=== PATIENT | female | born 1940 | race Caucasian/White ===

== ENCOUNTER 2019-06-26 14:29 | Outpatient (CLI) | payer MEDICARE, MEDICAID, SELFPAY ==
--- NOTE | ~2019-06-26 | XR_ITS ---
EXAMINATION: XR shoulder LT min 2V DATE: 06/26/2019 15:08 INDICATION: Left shoulder pain. TECHNIQUE: 6 views of left shoulder were obtained. COMPARISON: Left shoulder radiographs 12/22/2017 FINDINGS: There is a left shoulder hemiarthroplasty in near-anatomic alignment. No fracture. No perip rosthetic lucency to suggest loosening or infection. There is mild osteoarthritis of the acromioclavi cular joint. There is a surgical clip in left neck. IMPRESSION: 1. Left shoulder hemiarthroplasty in near-anatomic alignment. 2. Mild osteoarthritis of left acromioclavicular joint. Reviewed, dictated and finalized at location A. [facility] [employer]
== END 2019-06-26 14:30 | disposition home or self-care (01) ==
LOC: CHSIMG 14:34
PROVIDERS: PCP Internal Medicine; Visit Provider Internal Medicine
DX: M25.512 Pain in left shoulder (principal)
CPT/HCPCS: 73030

== ENCOUNTER 2020-07-09 06:32 | Outpatient (NON) | payer MEDICARE, SELFPAY ==
[2020-07-09 06:45] LABS: Basophils Absolute Auto 0.04 K/mm3 (0.00-0.10); Basophils Percent Auto 0.5 % (0.0-1.0); Eosinophils Absolute Auto 0.53 K/mm3 (0.02-0.50); Hematocrit 37.5 % (35.0-42.0); Hemoglobin 12.2 g/dL (11.7-13.8); Immature Granulocyte Absolute 0.03 K/mm3 (0.00-0.00); Immature Granulocyte Percent A 0.4 % (0.0-0.0); Lymphocytes Absolute Auto 2.66 K/mm3 (1.10-4.50); Lymphocytes Percent Auto 35.1 % (18.0-42.0); Mean Corpuscular HGB Conc 32.5 g/dL (32.0-36.0); Mean Corpuscular Hemoglobin 29.5 pg (27.0-31.0); Mean Corpuscular Volume 90.6 fL (78.0-102.0); Mean Platelet Volume 10.5 fl (9.2-11.8); Monocytes Absolute Auto 0.44 K/mm3 (0.10-0.90); Monocytes Percent Auto 5.8 % (2.0-11.0); Neutrophils Absolute Auto 3.9 K/mm3 (1.7-7.2); Neutrophils Percent Auto 51.2 % (50.0-70.0); Platelet Count Result 194 K/mm3 (150-420); Red Blood Count 4.14 M/mm3 (4.20-5.40); Red Cell Distribution Width 14.7 % (11.6-14.4); White Blood Count 7.6 K/mm3 (4.8-10.8)
[2020-07-09 07:08] LABS: Alanine Aminotransferase 29 U/L (14-59); Albumin Level 3.4 g/dL (3.4-5.0); Alkaline Phosphatase 81 U/L (46-116); Anion Gap 6 mmol/L (8-16); Aspartate Amino Transferase 11 U/L (15-37); Bilirubin,Total 0.9 mg/dL (0.00-1.00); Blood Urea Nitrogen 24 mg/dL (7-18); Carbon Dioxide 33 mmol/L (21-32); Chloride 103 mmol/L (98-108); Cholesterol 106 mg/dL (0-200); Estimated Glomerular Filt Rate 43; Glucose 146 mg/dL (70-99); HDL Direct 37 mg/dL (40-60); LDL Cholesterol Calculated 43 mg/dL (<130); Osmolality Calculated 301 mOsm/kg (285-295); Potassium 4.4 mmol/L (3.5-5.1); Sodium 142 mmol/L (136-145); Thyroid Stimulating Hormone 5.29 uIU/mL (0.36-3.74); Total Protein 6.6 g/dL (6.4-8.2); Triglycerides 129 mg/dL (0-150)
== END 2020-07-09 06:33 ==
PROVIDERS: PCP Internal Medicine; Visit Provider Internal Medicine
DX: E11.9 Type 2 diabetes mellitus without complications (principal); E78.5 Hyperlipidemia, unspecified; I10 Essential (primary) hypertension; I73.9 Peripheral vascular disease, unspecified
CPT/HCPCS: 36415; 80053; 80061; 84443; 85025

== ENCOUNTER 2020-08-06 06:20 | Outpatient (NON) | payer MEDICARE, SELFPAY ==
[2020-08-06 07:07] LABS: Basophils Absolute Auto 0.05 K/mm3 (0.00-0.10); Basophils Percent Auto 0.7 % (0.0-1.0); Eosinophils Absolute Auto 0.46 K/mm3 (0.02-0.50); Eosinophils Percent Auto 6.2 % (1.0-6.0); Hemoglobin 12.8 g/dL (11.7-13.8); Immature Granulocyte Absolute 0.02 K/mm3 (0.00-0.00); Immature Granulocyte Percent A 0.3 % (0.0-0.0); Lymphocytes Absolute Auto 2.74 K/mm3 (1.10-4.50); Lymphocytes Percent Auto 36.8 % (18.0-42.0); Mean Corpuscular Hemoglobin 29.2 pg (27.0-31.0); Mean Corpuscular Volume 91.1 fL (78.0-102.0); Monocytes Absolute Auto 0.47 K/mm3 (0.10-0.90); Monocytes Percent Auto 6.3 % (2.0-11.0); Neutrophils Absolute Auto 3.7 K/mm3 (1.7-7.2); Neutrophils Percent Auto 49.7 % (50.0-70.0); Platelet Count Result 197 K/mm3 (150-420); Red Blood Count 4.39 M/mm3 (4.20-5.40); Red Cell Distribution Width 14.3 % (11.6-14.4); White Blood Count 7.5 K/mm3 (4.8-10.8)
[2020-08-06 07:09] LABS: Hemoglobin A1C 6.6 % (<5.7)
[2020-08-06 07:14] LABS: Alanine Aminotransferase 34 U/L (14-59); Albumin Level 3.5 g/dL (3.4-5.0); Alkaline Phosphatase 91 U/L (46-116); Anion Gap 11 mmol/L (8-16); Aspartate Amino Transferase 14 U/L (15-37); Blood Urea Nitrogen 27 mg/dL (7-18); Calcium 9.7 mg/dL (8.5-10.1); Carbon Dioxide 27 mmol/L (21-32); Chloride 102 mmol/L (98-108); Estimated Glomerular Filt Rate 43; Glucose 119 mg/dL (70-99); Osmolality Calculated 296 mOsm/kg (285-295); Potassium 4.8 mmol/L (3.5-5.1); Sodium 140 mmol/L (136-145); Total Protein 6.9 g/dL (6.4-8.2)
== END 2020-08-06 06:21 ==
LOC: CHSLAB 06:21
PROVIDERS: Visit Provider Internal Medicine
DX: I25.10 Atherosclerotic heart disease of native coronary artery without angina pectoris (principal); E11.9 Type 2 diabetes mellitus without complications; I10 Essential (primary) hypertension; I73.9 Peripheral vascular disease, unspecified
CPT/HCPCS: 36415; 80053; 83036; 85025

== ENCOUNTER 2020-09-12 11:21 | Outpatient (NON) | payer MEDICARE, SELFPAY ==
[2020-09-12 11:43] LABS: Add Urine Microscopic? YES; Appearance Urine Cloudy (Clear); Bilirubin Urine Negative (Negative); Blood Urine 2+ (Negative); Color Urine Yellow (Yellow); Glucose Urine UA Negative (Negative); Ketones Urine Negative (Negative); Leukocyte Esterase Ur 3+ LEU/UL (Negative); Nitrate Urine Negative (Negative); Protein Urine Negative (Negative); Specific Grav Ur 1.015 (1.010-1.020); Urobilinogen Urine 0.2 mg/dL (0.2-1.0); pH Urine 6.5 (5.0-8.0)
[2020-09-12 12:19] LABS: Squamous Epithelial Cell Urine Occasional /hpf (Few); WBC Urine >75 /hpf (0-3)
[2020-09-12 12:20] LABS: Bacteria Urine 3+ /hpf
== END 2020-09-12 11:22 | disposition home or self-care (01) ==
LOC: CHSLAB 11:23
PROVIDERS: PCP Internal Medicine; Visit Provider Internal Medicine
DX: N39.0 Urinary tract infection, site not specified (principal)
CPT/HCPCS: 81001; 87077; 87086; 87088; 87186

== ENCOUNTER 2020-09-29 13:12 | Outpatient (NON) | payer MEDICARE, SELFPAY ==
[2020-09-29 13:20] LABS: Add Urine Microscopic? YES; Appearance Urine Cloudy (Clear); Bilirubin Urine Negative (Negative); Blood Urine Trace-Intact (Negative); Color Urine Yellow (Yellow); Glucose Urine UA Negative (Negative); Ketones Urine Negative (Negative); Leukocyte Esterase Ur 2+ (Negative); Nitrate Urine Negative (Negative); Protein Urine Trace (Negative); Specific Grav Ur 1.025 (1.010-1.020)
[2020-09-29 13:21] LABS: Bacteria Urine 1+ /hpf; RBC Urine 0-2 /hpf (0-2); Squamous Epithelial Cell Urine Rare /hpf (Few); WBC Urine >75 /hpf (0-3)
== END 2020-09-29 13:13 | disposition home or self-care (01) ==
LOC: CHSLAB 13:13
PROVIDERS: PCP Internal Medicine; Visit Provider Internal Medicine
DX: N39.0 Urinary tract infection, site not specified (principal)
CPT/HCPCS: 81001; 87086; 87088

== ENCOUNTER 2020-10-24 06:45 | Outpatient (NON) | payer MEDICARE, SELFPAY ==
[2020-10-24 07:09] LABS: Basophils Absolute Auto 0.06 K/mm3 (0.00-0.10); Basophils Percent Auto 0.7 % (0.0-1.0); Eosinophils Absolute Auto 0.28 K/mm3 (0.02-0.50); Eosinophils Percent Auto 3.4 % (1.0-6.0); Hematocrit 40.7 % (35.0-42.0); Hemoglobin 13.2 g/dL (11.7-13.8); Immature Granulocyte Absolute 0.03 K/mm3 (0.00-0.00); Immature Granulocyte Percent A 0.4 % (0.0-0.0); Lymphocytes Absolute Auto 2.44 K/mm3 (1.10-4.50); Lymphocytes Percent Auto 29.6 % (18.0-42.0); Mean Corpuscular HGB Conc 32.4 g/dL (32.0-36.0); Mean Corpuscular Hemoglobin 29.4 pg (27.0-31.0); Mean Corpuscular Volume 90.6 fL (78.0-102.0); Mean Platelet Volume 10.8 fl (9.2-11.8); Monocytes Absolute Auto 0.44 K/mm3 (0.10-0.90); Monocytes Percent Auto 5.3 % (2.0-11.0); Neutrophils Percent Auto 60.6 % (50.0-70.0); Platelet Count Result 227 K/mm3 (150-420); Red Blood Count 4.49 M/mm3 (4.20-5.40); Red Cell Distribution Width 13.6 % (11.6-14.4); White Blood Count 8.3 K/mm3 (4.8-10.8)
[2020-10-24 07:47] LABS: Alanine Aminotransferase 28 U/L (14-59); Albumin Level 3.6 g/dL (3.4-5.0); Alkaline Phosphatase 95 U/L (46-116); Anion Gap 9 mmol/L (8-16); Aspartate Amino Transferase 11 U/L (15-37); Blood Urea Nitrogen 16 mg/dL (7-18); Calcium 9.1 mg/dL (8.5-10.1); Carbon Dioxide 32 mmol/L (21-32); Chloride 101 mmol/L (98-108); Estimated Glomerular Filt Rate 56; Glucose 147 mg/dL (70-99); Osmolality Calculated 298 mOsm/kg (285-295); Potassium 4.3 mmol/L (3.5-5.1); Sodium 142 mmol/L (136-145); Total Protein 6.9 g/dL (6.4-8.2)
[2020-10-24 07:52] LABS: Hemoglobin A1C 7.8 % (<5.7)
[2020-10-24 08:10] LABS: Bilirubin,Total 1.2 mg/dL (0.00-1.00)
== END 2020-10-24 06:46 | disposition home or self-care (01) ==
LOC: CHSLAB 06:52
PROVIDERS: Visit Provider Internal Medicine
DX: E11.9 Type 2 diabetes mellitus without complications (principal)
CPT/HCPCS: 36415; 80053; 83036; 85025

== ENCOUNTER 2020-11-07 07:31 | Outpatient (NON) | payer MEDICARE, SELFPAY ==
[2020-11-07 08:35] LABS: Basophils Absolute Auto 0.06 K/mm3 (0.00-0.10); Basophils Percent Auto 0.9 % (0.0-1.0); Eosinophils Absolute Auto 0.28 K/mm3 (0.02-0.50); Eosinophils Percent Auto 4.1 % (1.0-6.0); Hematocrit 40.1 % (35.0-42.0); Immature Granulocyte Absolute 0.01 K/mm3 (0.00-0.00); Immature Granulocyte Percent A 0.1 % (0.0-0.0); Mean Corpuscular HGB Conc 32.4 g/dL (32.0-36.0); Mean Corpuscular Hemoglobin 29.2 pg (27.0-31.0); Mean Corpuscular Volume 90.1 fL (78.0-102.0); Mean Platelet Volume 11.3 fl (9.2-11.8); Monocytes Absolute Auto 0.44 K/mm3 (0.10-0.90); Monocytes Percent Auto 6.4 % (2.0-11.0); Neutrophils Absolute Auto 3.7 K/mm3 (1.7-7.2); Neutrophils Percent Auto 53.5 % (50.0-70.0); Platelet Count Result 219 K/mm3 (150-420); Red Blood Count 4.45 M/mm3 (4.20-5.40); Red Cell Distribution Width 13.3 % (11.6-14.4); White Blood Count 6.9 K/mm3 (4.8-10.8)
[2020-11-07 08:48] LABS: Alanine Aminotransferase 29 U/L (14-59); Albumin Level 3.4 g/dL (3.4-5.0); Alkaline Phosphatase 92 U/L (46-116); Anion Gap 12 mmol/L (8-16); Aspartate Amino Transferase 15 U/L (15-37); Bilirubin,Total 0.9 mg/dL (0.00-1.00); Blood Urea Nitrogen 21 mg/dL (7-18); Calcium 8.9 mg/dL (8.5-10.1); Carbon Dioxide 28 mmol/L (21-32); Chloride 102 mmol/L (98-108); Estimated Glomerular Filt Rate 54; Glucose 138 mg/dL (70-99); Osmolality Calculated 299 mOsm/kg (285-295); Potassium 4.3 mmol/L (3.5-5.1); Sodium 142 mmol/L (136-145); Total Protein 6.6 g/dL (6.4-8.2)
== END 2020-11-07 07:32 | disposition home or self-care (01) ==
LOC: CHSLAB 07:34
PROVIDERS: Visit Provider Internal Medicine
DX: I25.10 Atherosclerotic heart disease of native coronary artery without angina pectoris (principal); E11.9 Type 2 diabetes mellitus without complications; I10 Essential (primary) hypertension; I73.9 Peripheral vascular disease, unspecified
CPT/HCPCS: 36415; 80053; 83036; 85025

== ENCOUNTER 2021-01-02 06:34 | Outpatient (NON) | payer MEDICARE, SELFPAY ==
[2021-01-02 06:53] LABS: Basophils Absolute Auto 0.06 K/mm3 (0.00-0.10); Basophils Percent Auto 0.9 % (0.0-1.0); Eosinophils Absolute Auto 0.27 K/mm3 (0.02-0.50); Eosinophils Percent Auto 3.9 % (1.0-6.0); Hemoglobin 12.7 g/dL (11.7-13.8); Immature Granulocyte Absolute 0.02 K/mm3 (0.00-0.00); Immature Granulocyte Percent A 0.3 % (0.0-0.0); Lymphocytes Absolute Auto 2.52 K/mm3 (1.10-4.50); Lymphocytes Percent Auto 36.6 % (18.0-42.0); Mean Corpuscular HGB Conc 32.6 g/dL (32.0-36.0); Mean Corpuscular Volume 92.2 fL (78.0-102.0); Mean Platelet Volume 10.8 fl (9.2-11.8); Monocytes Absolute Auto 0.41 K/mm3 (0.10-0.90); Neutrophils Absolute Auto 3.6 K/mm3 (1.7-7.2); Neutrophils Percent Auto 52.3 % (50.0-70.0); Platelet Count Result 190 K/mm3 (150-420); Red Blood Count 4.23 M/mm3 (4.20-5.40); Red Cell Distribution Width 13.6 % (11.6-14.4); White Blood Count 6.9 K/mm3 (4.8-10.8)
[2021-01-02 07:14] LABS: Alanine Aminotransferase 32 U/L (14-59); Albumin Level 3.4 g/dL (3.4-5.0); Alkaline Phosphatase 85 U/L (46-116); Anion Gap 11 mmol/L (8-16); Aspartate Amino Transferase 15 U/L (15-37); Bilirubin,Total 0.8 mg/dL (0.00-1.00); Blood Urea Nitrogen 19 mg/dL (7-18); Calcium 9.1 mg/dL (8.5-10.1); Carbon Dioxide 29 mmol/L (21-32); Chloride 104 mmol/L (98-108); Cholesterol 119 mg/dL (0-200); Estimated Glomerular Filt Rate 50; Glucose 140 mg/dL (70-99); HDL Direct 39 mg/dL (40-60); LDL Cholesterol Calculated 53 mg/dL (<130); Osmolality Calculated 302 mOsm/kg (285-295); Potassium 4.2 mmol/L (3.5-5.1); Sodium 144 mmol/L (136-145); Total Protein 6.7 g/dL (6.4-8.2); Triglycerides 135 mg/dL (0-150)
== END 2021-01-02 06:35 | disposition home or self-care (01) ==
LOC: CHSLAB 06:36
PROVIDERS: Visit Provider Internal Medicine
DX: E11.9 Type 2 diabetes mellitus without complications (principal); E78.5 Hyperlipidemia, unspecified; I10 Essential (primary) hypertension; M81.0 Age-related osteoporosis without current pathological fracture
CPT/HCPCS: 36415; 80053; 80061; 85025

== ENCOUNTER 2021-04-24 06:49 | Outpatient (NON) | payer MEDICARE, SELFPAY ==
[2021-04-24 07:41] LABS: Basophils Absolute Auto 0.06 K/mm3 (0.00-0.10); Basophils Percent Auto 0.9 % (0.0-1.0); Eosinophils Absolute Auto 0.28 K/mm3 (0.02-0.50); Eosinophils Percent Auto 4.1 % (1.0-6.0); Hematocrit 38.9 % (35.0-42.0); Hemoglobin 12.6 g/dL (11.7-13.8); Immature Granulocyte Absolute 0.02 K/mm3 (0.00-0.00); Immature Granulocyte Percent A 0.3 % (0.0-0.0); Lymphocytes Absolute Auto 2.59 K/mm3 (1.10-4.50); Lymphocytes Percent Auto 37.8 % (18.0-42.0); Mean Corpuscular HGB Conc 32.4 g/dL (32.0-36.0); Mean Corpuscular Volume 92.6 fL (78.0-102.0); Monocytes Absolute Auto 0.43 K/mm3 (0.10-0.90); Monocytes Percent Auto 6.3 % (2.0-11.0); Neutrophils Absolute Auto 3.5 K/mm3 (1.7-7.2); Neutrophils Percent Auto 50.6 % (50.0-70.0); Platelet Count Result 185 K/mm3 (150-420); Red Cell Distribution Width 13.9 % (11.6-14.4); White Blood Count 6.9 K/mm3 (4.8-10.8)
[2021-04-24 08:06] LABS: Hemoglobin A1C 7.3 % (<5.7)
[2021-04-24 08:10] LABS: Alanine Aminotransferase 35 U/L (14-59); Albumin Level 3.3 g/dL (3.4-5.0); Alkaline Phosphatase 84 U/L (46-116); Anion Gap 10 mmol/L (8-16); Aspartate Amino Transferase 16 U/L (15-37); Bilirubin,Total 0.7 mg/dL (0.00-1.00); Blood Urea Nitrogen 21 mg/dL (7-18); Calcium 8.8 mg/dL (8.5-10.1); Carbon Dioxide 28 mmol/L (21-32); Chloride 105 mmol/L (98-108); Estimated Glomerular Filt Rate 52; Glucose 132 mg/dL (70-99); Osmolality Calculated 301 mOsm/kg (285-295); Potassium 4.1 mmol/L (3.5-5.1); Sodium 143 mmol/L (136-145); Total Protein 6.4 g/dL (6.4-8.2)
== END 2021-04-24 06:50 | disposition home or self-care (01) ==
LOC: CHSLAB 06:50
PROVIDERS: Visit Provider Internal Medicine
DX: E11.9 Type 2 diabetes mellitus without complications (principal); I10 Essential (primary) hypertension; I73.9 Peripheral vascular disease, unspecified
CPT/HCPCS: 36415; 80053; 83036; 85025

== ENCOUNTER 2021-07-03 06:52 | Outpatient (NON) | payer OTHER, SELFPAY ==
[2021-07-03 07:38] LABS: Basophils Absolute Auto 0.05 K/mm3 (0.00-0.10); Basophils Percent Auto 0.7 % (0.0-1.0); Eosinophils Absolute Auto 0.31 K/mm3 (0.02-0.50); Eosinophils Percent Auto 4.5 % (1.0-6.0); Hematocrit 40.4 % (35.0-42.0); Hemoglobin 13.1 g/dL (11.7-13.8); Immature Granulocyte Absolute 0.03 K/mm3 (0.00-0.00); Immature Granulocyte Percent A 0.4 % (0.0-0.0); Lymphocytes Absolute Auto 2.42 K/mm3 (1.10-4.50); Lymphocytes Percent Auto 35.2 % (18.0-42.0); Mean Corpuscular HGB Conc 32.4 g/dL (32.0-36.0); Mean Corpuscular Hemoglobin 30.3 pg (27.0-31.0); Mean Corpuscular Volume 93.5 fL (78.0-102.0); Monocytes Absolute Auto 0.45 K/mm3 (0.10-0.90); Monocytes Percent Auto 6.5 % (2.0-11.0); Neutrophils Absolute Auto 3.6 K/mm3 (1.7-7.2); Neutrophils Percent Auto 52.7 % (50.0-70.0); Platelet Count Result 187 K/mm3 (150-420); Red Blood Count 4.32 M/mm3 (4.20-5.40); Red Cell Distribution Width 13.9 % (11.6-14.4); White Blood Count 6.9 K/mm3 (4.8-10.8)
[2021-07-03 08:04] LABS: Alanine Aminotransferase 44 U/L (14-59); Albumin Level 3.5 g/dL (3.4-5.0); Alkaline Phosphatase 99 U/L (46-116); Anion Gap 11 mmol/L (8-16); Aspartate Amino Transferase 19 U/L (15-37); Bilirubin,Total 0.6 mg/dL (0.00-1.00); Blood Urea Nitrogen 19 mg/dL (7-18); Calcium 9.1 mg/dL (8.5-10.1); Carbon Dioxide 29 mmol/L (21-32); Chloride 101 mmol/L (98-108); Cholesterol 111 mg/dL (0-200); Estimated Glomerular Filt Rate 50; Glucose 196 mg/dL (70-99); HDL Direct 36 mg/dL (40-60); LDL Cholesterol Calculated 44 mg/dL (<130); Osmolality Calculated 299 mOsm/kg (285-295); Potassium 4.6 mmol/L (3.5-5.1); Sodium 141 mmol/L (136-145); Thyroid Stimulating Hormone 3.87 uIU/mL (0.36-3.74); Total Protein 6.7 g/dL (6.4-8.2); Triglycerides 153 mg/dL (0-150)
== END 2021-07-03 06:53 | disposition home or self-care (01) ==
LOC: CHSLAB 06:56
PROVIDERS: Visit Provider Internal Medicine
DX: E11.9 Type 2 diabetes mellitus without complications (principal); E78.5 Hyperlipidemia, unspecified; I10 Essential (primary) hypertension; I73.9 Peripheral vascular disease, unspecified
CPT/HCPCS: 36415; 80053; 80061; 84443; 85025

== ENCOUNTER 2021-08-04 10:52 | Outpatient (CLI) | payer OTHER, SELFPAY ==
--- NOTE | ~2021-08-04 | XR_ITS ---
EXAMINATION: XR tibia fibula RT 2V, XR foot RT min 3V DATE: 08/04/2021 11:33 INDICATION: Sores at the right foot and lower leg with generalized pain and aching. TECHNIQUE: 1. Anteroposterior, mortise, additional oblique and lateral view of the affected ankle were obtained. 2. Anteroposterior and lateral views of the right tibia and fibula were obtained. COMPARISON: None. FINDINGS: Partially visualized right total knee arthroplasty. No periprosthetic lucency about the tibial compon ent to suggest loosening. Alignment of the right foot and ankle is normal. No fracture. 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 A dditional mild osteoarthritis at the tibiotalar and multiple additional joints in the mid and forefoo t. No ankle joint effusion. Diffuse soft tissue swelling throughout the right lower leg, foot and ank le. There are multiple small scattered calcifications in the subcutaneous tissues likely combination of phleboliths and heterotopic ossification. IMPRESSION: 1. No acute osseous abnormality at the right foot are lower leg. 2. Mild to moderate polyarticular osteoarthritis at the right foot and ankle. Reviewed, dictated and finalized at location A. IMPRESSION: 1. No acute osseous abnormality at the right foot are lower leg. 2. Mild to moderate polyarticular osteoarthritis at the right foot and ankle.
== END 2021-08-04 10:53 | disposition home or self-care (01) ==
LOC: CHSIMG 10:54
PROVIDERS: PCP Internal Medicine; Visit Provider Nurse Practitioner Family
DX: L98.9 Disorder of the skin and subcutaneous tissue, unspecified (principal); E11.9 Type 2 diabetes mellitus without complications
CPT/HCPCS: 73590; 73630

== ENCOUNTER 2021-08-19 14:09 | Outpatient (CLI) | payer OTHER, SELFPAY ==
--- NOTE | ~2021-08-19 | US_ITS ---
EXAMINATION: US venous doppler LE DATE: 08/19/2021 15:06 INDICATION: Localized swelling at the right lower limb. TECHNIQUE: Grayscale ultrasound images without and with compression and Doppler ultrasound images of the right lower extremity veins were obtained. COMPARISON: None. FINDINGS: The visualized portions of right common femoral vein, profunda (deep) femoral vein, femoral vein, pop liteal vein, peroneal trunk, posterior tibial veins, peroneal veins, gastrocnemius vein and greater s aphenous vein outflow are patent. Right standing venous mapping: reflux seconds duration; vein size. Greater saphenous origin: 0 seconds; 4.9 mm. Greater saphenous mid thigh:------ 0 seconds; 2.4 mm. Greater saphenous below knee:--- 0 seconds; 2.6 mm. Greater saphenous distal calf:------ 0 seconds; 2.0 mm. Lesser saphenous proximally:------ 0 seconds; 1.0 mm. Lesser saphenous distally: 0 seconds; 1.1 mm. IMPRESSION: 1. No deep venous thrombosis in the right lower limb. 2. No reflux along the right greater or lesser saphenous veins. Reviewed, dictated and finalized at location A.
--- NOTE | ~2021-08-19 | US_ITS ---
EXAMINATION: US arterial ankle brachial ind DATE: 08/19/2021 15:06 INDICATION: Localized edema/swelling in the lower limbs. TECHNIQUE: Segmental pressures and plethysmographic and Doppler waveforms of the brachial and lower e xtremity arteries were obtained. COMPARISON: None. FINDINGS: Right and left brachial artery pressures of 110 mm Hg and 106 mm Hg, respectively, are concordant (no rmal difference <= 30 mmHg). The right ankle-brachial index (VICKIE) is 0.77 (normal >= 0.9-1.0). Arterial Doppler waveforms are biph asic with delayed upstrokes in the right dorsalis pedis artery. Monophasic parvus and tardus waveform s with very slow flow 2-3 cm/s in the right posterior tibial artery on color Doppler. The left VICKIE is 0.91. Arterial Doppler waveforms are biphasic with brisk systolic upstroke at the lef t dorsalis pedis artery. Slow monophasic waveform with borderline delayed upstroke at the left shuttler car ior tibial artery with peak systolic velocity of 3-4 cm/s. IMPRESSION: 1. Arterial occlusive disease to the bilateral lower limbs with mildly decreased right and borderline decreased left ABIs. Reviewed, dictated and finalized at location A. IMPRESSION: 1. Arterial occlusive disease to the bilateral lower limbs with mildly decrease d right and borderline decreased left ABIs.
== END 2021-08-19 14:10 | disposition home or self-care (01) ==
LOC: CHSIMG 14:11
PROVIDERS: PCP Internal Medicine; Visit Provider Nurse Practitioner Family
DX: R60.0 Localized edema (principal); I87.8 Other specified disorders of veins; L97.912 Non-pressure chronic ulcer of unspecified part of right lower leg with fat layer exposed; R09.89 Other specified symptoms and signs involving the circulatory and respiratory systems
CPT/HCPCS: 93922; 93971

== ENCOUNTER 2021-09-08 09:35 | Outpatient (RCR) | payer OTHER, SELFPAY | END 2021-09-17 23:59 | disposition home or self-care (01) | LOC: CHSWOUND 09:35 | PROVIDERS: PCP Internal Medicine; Visit Provider Nurse Practitioner Family | DX: E11.621 Type 2 diabetes mellitus with foot ulcer (principal); L97.512 Non-pressure chronic ulcer of other part of right foot with fat layer exposed; E11.622 Type 2 diabetes mellitus with other skin ulcer; L97.812 Non-pressure chronic ulcer of other part of right lower leg with fat layer exposed; E11.40 Type 2 diabetes mellitus with diabetic neuropathy, unspecified; E11.51 Type 2 diabetes mellitus with diabetic peripheral angiopathy without gangrene; I25.10 Atherosclerotic heart disease of native coronary artery without angina pectoris; I10 Essential (primary) hypertension; G51.0 Bell's palsy; G30.9 Alzheimer's disease, unspecified; F02.80 Dementia in other diseases classified elsewhere, unspecified severity, without behavioral disturbance, psychotic disturbance, mood disturbance, and anxiety; Z79.899 Other long term (current) drug therapy; Z79.4 Long term (current) use of insulin; Z79.84 Long term (current) use of oral hypoglycemic drugs; E78.5 Hyperlipidemia, unspecified | CPT/HCPCS: 11042; 87070; 87205; 97597; 99213; G0463 ==

== ENCOUNTER 2021-09-30 06:26 | Outpatient (NON) | payer OTHER, SELFPAY ==
[2021-09-30 07:04] LABS: Basophils Absolute Auto 0.04 K/mm3 (0.00-0.10); Basophils Percent Auto 0.5 % (0.0-1.0); Eosinophils Absolute Auto 0.24 K/mm3 (0.02-0.50); Eosinophils Percent Auto 3.2 % (1.0-6.0); Hematocrit 39.7 % (35.0-42.0); Hemoglobin 12.2 g/dL (11.7-13.8); Immature Granulocyte Absolute 0.02 K/mm3 (0.00-0.00); Immature Granulocyte Percent A 0.3 % (0.0-0.0); Lymphocytes Absolute Auto 2.73 K/mm3 (1.10-4.50); Lymphocytes Percent Auto 36.5 % (18.0-42.0); Mean Corpuscular HGB Conc 30.7 g/dL (32.0-36.0); Mean Corpuscular Hemoglobin 29.3 pg (27.0-31.0); Mean Corpuscular Volume 95.2 fL (78.0-102.0); Mean Platelet Volume 10.6 fl (9.2-11.8); Monocytes Absolute Auto 0.44 K/mm3 (0.10-0.90); Monocytes Percent Auto 5.9 % (2.0-11.0); Neutrophils Percent Auto 53.6 % (50.0-70.0); Platelet Count Result 208 K/mm3 (150-420); Red Blood Count 4.17 M/mm3 (4.20-5.40); Red Cell Distribution Width 13.7 % (11.6-14.4); White Blood Count 7.5 K/mm3 (4.8-10.8)
[2021-09-30 07:19] LABS: Alanine Aminotransferase 29 U/L (14-59); Alkaline Phosphatase 77 U/L (46-116); Anion Gap 6 mmol/L (8-16); Aspartate Amino Transferase 20 U/L (15-37); Bilirubin,Total 0.6 mg/dL (0.00-1.00); Blood Urea Nitrogen 17 mg/dL (7-18); Calcium 8.9 mg/dL (8.5-10.1); Carbon Dioxide 30 mmol/L (21-32); Chloride 104 mmol/L (98-108); Cholesterol 104 mg/dL (0-200); Estimated Glomerular Filt Rate 51; Glucose 82 mg/dL (70-99); HDL Direct 38 mg/dL (40-60); LDL Cholesterol Calculated 41 mg/dL (<130); Osmolality Calculated 290 mOsm/kg (285-295); Potassium 4.1 mmol/L (3.5-5.1); Sodium 140 mmol/L (136-145); Total Protein 6.7 g/dL (6.4-8.2); Triglycerides 127 mg/dL (0-150)
[2021-09-30 07:42] LABS: Hemoglobin A1C 6.6 % (<5.7)
== END 2021-09-30 06:27 | disposition home or self-care (01) ==
PROVIDERS: Visit Provider Internal Medicine
DX: E11.9 Type 2 diabetes mellitus without complications (principal); E78.5 Hyperlipidemia, unspecified; I10 Essential (primary) hypertension; I73.9 Peripheral vascular disease, unspecified
CPT/HCPCS: 36415; 80053; 80061; 83036; 85025

== ENCOUNTER 2021-11-26 10:21 | Outpatient (CLI) | payer OTHER, SELFPAY ==
--- NOTE | ~2021-11-26 | XR_ITS ---
EXAM: XR foot RT min 3V DATE: 11/26/2021 10:56 HISTORY: NON HEALING R GREAT TOE ULCER/DIABETES UNCONTROLLED . COMPARISON: None available. FINDINGS: Normal mineralization. No fracture or dislocation. No lytic or blastic lesion. Degenerativ e changes in the first MTP, midfoot and tibiotalar joints. No erosion or periosteal change. Soft tiss ue swelling of the foot. Scattered soft tissue calcifications, likely venous. Medial ulcer over the f irst MTP, without subjacent osseous change. IMPRESSION: No radiographic evidence of osteomyelitis. Reviewed, dictated and finalized at location K.
[2021-11-26 10:36] LABS: Basophils Absolute Auto 0.05 K/mm3 (0.00-0.10); Basophils Percent Auto 0.6 % (0.0-1.0); Eosinophils Absolute Auto 0.17 K/mm3 (0.02-0.50); Eosinophils Percent Auto 2.1 % (1.0-6.0); Hematocrit 39.9 % (35.0-42.0); Immature Granulocyte Absolute 0.02 K/mm3 (0.00-0.00); Immature Granulocyte Percent A 0.2 % (0.0-0.0); Lymphocytes Absolute Auto 2.15 K/mm3 (1.10-4.50); Lymphocytes Percent Auto 26.5 % (18.0-42.0); Mean Corpuscular HGB Conc 32.6 g/dL (32.0-36.0); Mean Corpuscular Hemoglobin 30.4 pg (27.0-31.0); Mean Corpuscular Volume 93.2 fL (78.0-102.0); Mean Platelet Volume 10.2 fl (9.2-11.8); Monocytes Absolute Auto 0.39 K/mm3 (0.10-0.90); Monocytes Percent Auto 4.8 % (2.0-11.0); Neutrophils Absolute Auto 5.3 K/mm3 (1.7-7.2); Neutrophils Percent Auto 65.8 % (50.0-70.0); Platelet Count Result 204 K/mm3 (150-420); Red Blood Count 4.28 M/mm3 (4.20-5.40); White Blood Count 8.1 K/mm3 (4.8-10.8)
[2021-11-26 10:53] LABS: Alanine Aminotransferase 29 U/L (14-59); Albumin Level 3.3 g/dL (3.4-5.0); Alkaline Phosphatase 104 U/L (46-116); Anion Gap 9 mmol/L (8-16); Aspartate Amino Transferase 17 U/L (15-37); Bilirubin,Total 0.7 mg/dL (0.00-1.00); Blood Urea Nitrogen 20 mg/dL (7-18); Calcium 9.2 mg/dL (8.5-10.1); Carbon Dioxide 28 mmol/L (21-32); Chloride 101 mmol/L (98-108); Estimated Glomerular Filt Rate 43; Glucose 245 mg/dL (70-99); Osmolality Calculated 296 mOsm/kg (285-295); Potassium 4.3 mmol/L (3.5-5.1); Sodium 138 mmol/L (136-145); Total Protein 7.1 g/dL (6.4-8.2)
== END 2021-11-26 10:22 | disposition home or self-care (01) ==
LOC: CHSIMG 10:23
PROVIDERS: PCP Internal Medicine; Visit Provider Nurse Practitioner Family
DX: L98.491 Non-pressure chronic ulcer of skin of other sites limited to breakdown of skin (principal); E11.9 Type 2 diabetes mellitus without complications
CPT/HCPCS: 36415; 73630; 80053; 85025

== ENCOUNTER 2021-12-19 05:03 | Inpatient (IN) | payer OTHER, SELFPAY ==
[2021-12-19] VITALS (39 sets, daily range): BP systolic 128–199; BP diastolic 57–104; PULSE 52–118; RESP 18–28; TEMP 35.7–36.6; O2SAT 88–97; BMI 45.8
--- NOTE | ~2021-12-19 | CT_ITS ---
EXAMINATION: CTA chest PE protocol DATE: 12/22/2021 12:39 INDICATION: Shortness of breath. TECHNIQUE: Computed tomography angiography (CTA) of the chest was performed with 100 mL Omnipaque-350 intravenous contrast timed to evaluate the pulmonary arteries. Coronal maximum intensity projection 3D-reconstructions were created by the technologist. Automated exposure control and iterative reconst ruction technique were employed. The dose-length product was 997.26 mGy-cm. COMPARISON: Chest single view 12/19/2021 FINDINGS: There are small pleural effusions. There is atelectasis bilaterally with a dependent predom inance. There is smooth septal thickening in the lungs, consistent with pulmonary edema. There are mu ltiple nodules in the lungs measuring up to 9 mm in left lower lobe. The heart size is normal. There are coronary artery calcifications. There is a moderate-sized pericardial effusion. There is mediasti nal and left supraclavicular lymphadenopathy. For example, a left supraclavicular node measures 2.9 x 1.8 cm. There are gallstones in the gallbladder, which is normal in size. There is severe thoracic s pondylosis. IMPRESSION: 1. No pulmonary embolus. 2. Pulmonary nodules measuring up to 9 mm suspicious for metastatic disease. 3. Mediastinal and left supraclavicular lymphadenopathy suspicious for metastatic disease. Ultrasound -guided core needle biopsy of a left supraclavicular lymph node is recommended. 4. Mild pulmonary edema. 5. Small pleural effusions. 6. Moderate-sized pericardial effusion. Reviewed, dictated and finalized at location A. IMPRESSION: 1. No pulmonary embolus. 2. Pulmonary nodules measuring up to 9 mm suspicious for metastatic disease. 3. Mediastinal and left supraclavicular lymphadenopathy suspicious for metastat ic disease. Ultrasound-guided core needle biopsy of a left supraclavicular lymp h node is recommended. 4. Mild pulmonary edema. 5. Small pleural effusions. 6. Moderate-sized pericardial effusion.
--- NOTE | ~2021-12-19 | XR_ITS ---
EXAMINATION: XR chest 1V portable DATE: 12/19/2021 05:51 INDICATION: Shortness of breath TECHNIQUE: frontal view of the chest was obtained. COMPARISON: Chest radiograph dated 03/15/2019 FINDINGS: Gradient of basilar predominant hazy airspace opacities in the bilateral mid and lower lung zones con sistent with small bilateral posterior layering pleural effusions with associated atelectasis and/or pneumonia. Perihilar opacities likely represent superimposed mild pulmonary edema. Cardiomegaly. Dens e mitral annular calcification. Severe right glenohumeral osteoarthritis. Left glenohumeral hemiarthr oplasty with humeral head component. Surgical clip at the left neck. IMPRESSION: 1. Likely congestive heart failure with cardiomegaly, mild perihilar edema and small bilateral pleura l effusions with associated atelectasis. Differential includes pneumonia. Reviewed, dictated and finalized at location A. IMPRESSION: 1. Likely congestive heart failure with cardiomegaly, mild perihilar edema and small bilateral pleural effusions with associated atelectasis. Differential inc ludes pneumonia.
--- NOTE | 2021-12-19 05:09 | ED.SOB ---
HPI - SOB/Dyspnea General Chief Complaint: Shortness of Breath/Dyspnea <Andrey Dumont MD - Last Filed: 12/20/21 07:03> Stated Complaint: SOB <Andrey Dumont MD - Last Filed: 12/20/21 07:03> Time Seen by Provider: 12/19/21 05:09 <Andrey Dumont MD - Last Filed: 12/20/21 07:03> Source: patient, EMS and RN notes reviewed <Andrey Dumont MD - Last Filed: 12/20/21 07:03> Mode of arrival: EMS <Andrey Dumont MD - Last Filed: 12/20/21 07:03> Limitations: no limitations <Andrey Dumont MD - Last Filed: 12/20/21 07:03> History of Present Illness MD elicited complaint: shortness of breath <Andrey Dumont MD - Last Filed: 12/20/21 07:03> Onset (ago): day(s) (2-3) <Andrey Dumont MD - Last Filed: 12/20/21 07:03> Timing: constant <Andrey Dumont MD - Last Filed: 12/20/21 07:03> Severity: moderate <Andrey Dumont MD - Last Filed: 12/20/21 07:03> Exacerbating factors: lying flat, exertion and movement <Andrey Dumont MD - Last Filed: 12/20/21 07:03> Relieving factors: oxygen <Andrey Dumont MD - Last Filed: 12/20/21 07:03> Known history of: COPD <Andrey Dumont MD - Last Filed: 12/20/21 07:03> Associated symptoms: cough and wheezing <Andrey Dumont MD - Last Filed: 12/20/21 07:03> Treatment prior to arrival: oxygen <Andrey Dumont MD - Last Filed: 12/20/21 07:03> Related Data Home oxygen amount: none <MD Ayaz Cristina Last Filed: 12/20/21 07:03> Home Medications: Home Medications Medication Instructions Recorded Confirmed Trulicity 1.5 mg subcut WEEKLY 12/19/21 12/19/21 Wellbutrin SR 150 mg PO DAILY 12/19/21 12/19/21 armodafinil 200 mg tablet 200 mg PO DAILY 12/19/21 12/19/21 aspirin 81 mg tablet 81 mg PO DAILY 12/19/21 12/19/21 atorvastatin 20 mg tablet 20 mg PO DAILY 12/19/21 12/19/21 cilostazol 100 mg tablet 100 mg PO BID 12/19/21 12/19/21 donepezil 10 mg tablet 10 mg PO 12/19/21 12/19/21 gabapentin 300 mg capsule 300 mg PO DAILY 12/19/21 12/19/21 gabapentin 600 mg tablet 900 mg PO 12/19/21 12/19/21 insulin NPH isoph U-100 human 100 10 unit subcut 12/19/21 12/19/21 unit/mL subcutaneous suspension (Novolin N NPH U-100 Insulin isophane) insulin NPH isoph U-100 human 100 30 unit subcut [facility] 12/19/21 12/19/21 unit/mL subcutaneous suspension (Novolin N NPH U-100 Insulin isophane) metformin 500 mg tablet 500 mg PO BID 12/19/21 12/19/21 silver sulfadiazine 1 % topical 1 applic topical DAILY 12/19/21 12/19/21 cream spironolactone 25 1 tablet PO DAILY 12/19/21 12/19/21 mg-hydrochlorothiazide 25 mg tablet <Andrey Dumont MD - Last Filed: 12/20/21 07:03> Allergies/Adverse Reactions: Allergies Allergy/AdvReac Type Severity Reaction Status Date / Time No Known Allergies Allergy Verified 12/19/21 05:06 <Andrey Dumont MD - Last Filed: 12/20/21 07:03> Review of Systems Review of Systems: All systems reviewed & are unremarkable except as noted in HPI and below <Andrey Dumont MD - Last Filed: 12/20/21 07:03> Constitutional: Constitutional: Denies chills and Denies fever(s) <Andrey Dumont MD - Last Filed: 12/20/21 07:03> Cardiovascular: Cardiovascular: Denies chest pain <Andrey Dumont MD - Last Filed: 12/20/21 07:03> Respiratory: Respiratory: Reports as per HPI <Andrey Dumont MD - Last Filed: 12/20/21 07:03> Gastrointestinal: Gastrointestinal: Denies nausea and Denies vomiting <Andrey Dumont MD - Last Filed: 12/20/21 07:03> Genitourinary: Genitourinary: Denies nocturia and Denies dysuria <Andrey Dumont MD - Last Filed: 12/20/21 07:03> [facility] Past Medical History Medical History: Medical History (Updated 12/19/21 @ 07:02 by Andrey Dumont MD) Anxiety and depression CVA (cerebral vascular accident) Hyperlipidemia Hypertension Morbid obesity Obstructive sleep apnea Peripheral vascular disease Type 2 diabetes mellitus <Andrey Valladares Sa
[2021-12-19] MEDS: ALBUTEROL SULFATE (*SP) INHALER 4 PUFF INHALATION (05:38)
--- NOTE | 2021-12-19 05:40 | PC.NURSE ---
PT IS TO BE PLACED ON HIGH FLOW O2.
[2021-12-19 05:57] LABS: Base Excess ABG 4.6 mmol/L (0-2); HCO3 ABG 32.5 mmol/L (23-29); Oxygen Content ABG 17.9 %vol (16.0-22.0); Oxygen Saturation ABG 92.9 % (95-97); Oxyhemoglobin 91.9 % (94-100); PCO2 ABG 63.3 mmHg (35-45); PO2 ABG 74.2 mmHg (75-85); Total Hemoglobin 13.8 g/dL (12.0-18.0); pH ABG 7.33 (7.35-7.45)
[2021-12-19 06:00] LABS: Modified Allen's Test Pass; Site Drawn RIGHT RADIAL
[2021-12-19 06:01] LABS: Device NASAL CANNULA
[2021-12-19 06:03] LABS: Basophils Absolute Auto 0.04 K/mm3 (0.00-0.10); Basophils Percent Auto 0.5 % (0.0-1.0); Eosinophils Absolute Auto 0.17 K/mm3 (0.02-0.50); Eosinophils Percent Auto 2.1 % (1.0-6.0); Hematocrit 40.4 % (35.0-42.0); Hemoglobin 12.6 g/dL (11.7-13.8); Immature Granulocyte Absolute 0.02 K/mm3 (0.00-0.00); Immature Granulocyte Percent A 0.3 % (0.0-0.0); Lymphocytes Absolute Auto 1.87 K/mm3 (1.10-4.50); Lymphocytes Percent Auto 23.6 % (18.0-42.0); Mean Corpuscular HGB Conc 31.2 g/dL (32.0-36.0); Mean Corpuscular Hemoglobin 30.4 pg (27.0-31.0); Mean Corpuscular Volume 97.3 fL (78.0-102.0); Mean Platelet Volume 10.1 fl (9.2-11.8); Monocytes Absolute Auto 0.48 K/mm3 (0.10-0.90); Monocytes Percent Auto 6.1 % (2.0-11.0); Neutrophils Absolute Auto 5.3 K/mm3 (1.7-7.2); Neutrophils Percent Auto 67.4 % (50.0-70.0); Platelet Count Result 220 K/mm3 (150-420); Red Blood Count 4.15 M/mm3 (4.20-5.40); Red Cell Distribution Width 14.9 % (11.6-14.4); White Blood Count 7.9 K/mm3 (4.8-10.8)
--- NOTE | 2021-12-19 06:16 | PC.NURSE ---
pt is repositioned on stretcher at this time. iv site established. pt reports she is breathing easier with the high flow o2. pt is awaiting results at this time. will continue to monitor.
[2021-12-19 06:17] LABS: Prothrombin Time 11.2 Seconds (9.50-12.10)
[2021-12-19 06:26] LABS: Alanine Aminotransferase 25 U/L (14-59); Albumin Level 3.5 g/dL (3.4-5.0); Alkaline Phosphatase 101 U/L (46-116); Anion Gap 5 mmol/L (8-16); Aspartate Amino Transferase 16 U/L (15-37); Bilirubin,Total 0.8 mg/dL (0.00-1.00); Blood Urea Nitrogen 19 mg/dL (7-18); Carbon Dioxide 32 mmol/L (21-32); Chloride 101 mmol/L (98-108); Estimated CRCL calculation 39 ml/min; Estimated Glomerular Filt Rate 41; Glucose 184 mg/dL (70-99); Magnesium 1.6 mg/dL (1.8-2.4); NT Pro B Type Natriuretic Pept 334 pg/mL (0-450); Osmolality Calculated 293 mOsm/kg (285-295); Potassium 4.4 mmol/L (3.5-5.1); Sodium 138 mmol/L (136-145); Total Protein 7.2 g/dL (6.4-8.2)
[2021-12-19 06:27] LABS: CRP < 0.2 mg/dL (0.0-0.9)
[2021-12-19 06:30] LABS: Lactic Acid Reflex 0.7 mmol/L (0.4-2.0)
[2021-12-19 06:38] LABS: SARS-CoV-2 RNA PCR Negative (Negative)
--- NOTE | 2021-12-19 06:39 | PC.NURSE ---
pt now repositioned onto left side with pillow under rt hip. will continue to monitor.
[2021-12-19] MEDS: methylPREDNISolone SOD SUCC 125 MG VIAL IV PUSH (07:03)
[2021-12-19] MEDS: IPRATROPIUM 0.5 MG/ALBUTEROL SULFATE 2.5 MG AMPUL.NEB 3 ML INHALATION ×3 (07:05→18:24)
[2021-12-19 07:23] LABS: HCO3 ABG 30.6 mmol/L (23-29); Oxygen Content ABG 16.9 %vol (16.0-22.0); Oxyhemoglobin 87.1 % (94-100); PCO2 ABG 60.7 mmHg (35-45); PO2 ABG 59.8 mmHg (75-85); Total Hemoglobin 13.8 g/dL (12.0-18.0); pH ABG 7.32 (7.35-7.45)
[2021-12-19 07:24] LABS: Site Drawn LEFT RADIAL
[2021-12-19 07:25] LABS: Modified Allen's Test Pass
[2021-12-19 07:26] LABS: Device HIGH FLOW THERAPY
[2021-12-19 08:30] LABS: Base Excess ABG 1.5 mmol/L (0-2); HCO3 ABG 28.5 mmol/L (23-29); Oxygen Content ABG 17.2 %vol (16.0-22.0); Oxygen Saturation ABG 90.6 % (95-97); PCO2 ABG 55.2 mmHg (35-45); PO2 ABG 66.2 mmHg (75-85); Total Hemoglobin 13.6 g/dL (12.0-18.0); pH ABG 7.33 (7.35-7.45)
[2021-12-19 08:32] LABS: Device HIGH FLOW THERAPY; Modified Allen's Test Pass; Site Drawn LEFT RADIAL
--- NOTE | 2021-12-19 09:34 | ECG_ITS ---
Measurements Intervals [place] Rate: 93 P: 18 AK: 184 QRS: 79 QRSD: 121 T: 27 QT: 367 QTc: 456 Interpretive Statements SINUS RHYTHM RIGHT BUNDLE BRANCH BLOCK LOW VOLTAGE- PRECORDIAL LEADS BASELINE ARTIFACT- I, II, III, AVR, AVL, AVF, V1-V7 ABNORMAL ECG Electronically Signed On 12-19-2021 10:56:41 CDT by Lester Mendez D.O.
[2021-12-19] MEDS: SODIUM BICARBONATE 8.4% 50 MEQ/50 ML SYRINGE IV PUSH (09:53)
[2021-12-19] MEDS: FUROSEMIDE INJ 100 MG/10 ML VIAL 80 MG IV PUSH (09:53)
--- NOTE | 2021-12-19 10:22 | PC.NURSE ---
[facility] ACCEPTED PT 0815, BED REQUESTED FROM MARY ELLEN CARCAMO NURSE. BED ASSIGNMENT OF 0830,
[2021-12-19] MEDS: cilostazoL 100 MG TABLET PO ×2 (11:17→16:55)
[2021-12-19] MEDS: ATORVASTATIN 10 MG TABLET 20 MG PO (11:17)
[2021-12-19] MEDS: hydroCHLOROthiazide 25 MG TABLET PO (11:17)
[2021-12-19] MEDS: buPROPion HCL XL (24 HR) 150 MG TABCR PO (11:18)
[2021-12-19] MEDS: SPIRONOLACTONE 25 MG TABLET PO (11:18)
[2021-12-19] MEDS: GABAPENTIN 300 MG CAPSULE PO (11:18)
[2021-12-19] MEDS: ENOXAPARIN 40 MG/0.4 ML SYRINGE SUB-Q (11:18)
[2021-12-19 11:28] LABS: Add Urine Microscopic? YES; Appearance Urine Clear (Clear); Bilirubin Urine Negative (Negative); Blood Urine 2+ (Negative); Color Urine Light Yellow (Yellow); Glucose Urine UA Negative (Negative); Ketones Urine Negative (Negative); Leukocyte Esterase Ur 1+ LEU/UL (Negative); Nitrate Urine Negative (Negative); Protein Urine Negative (Negative); Urobilinogen Urine 0.2 mg/dL (0.2-1.0)
[2021-12-19 11:33] LABS: Bacteria Urine Trace /hpf; Squamous Epithelial Cell Urine Occasional /hpf (Few)
[2021-12-19 11:57] LABS: Glucose Point of Care 210 mg/dl (65-105)
[2021-12-19] MEDS: MAGNESIUM SULF 2 GM/WATER 50ML 2 GM/50 ML BAG IVPB (13:43)
[2021-12-19] MEDS: SILVER SULFADIAZINE 1% CR 400 GM JAR (*BKC) 1 APPLIC TOPICAL (13:43)
[2021-12-19] MEDS: ASPIRIN 81 MG ENTERIC TABLET PO (13:43)
[2021-12-19] MEDS: MAGNESIUM SULF 2 GM/WATER 50ML 2 GM/50 ML BAG 50 GM (14:46)
--- NOTE | 2021-12-19 14:53 | ADMGEN ---
This patient, Stephanie Zavala, was admitted to 2nd Floor Room 206-1. Patient/family oriented to hospital policies and general routines including ID bracelet, bed and alarms, visiting hours, pain management, procedures, bathroom and other care routines, personal items, smoking policy, room service/diet, and visiting hours. Information on how to activate the Rapid Response Team has been discussed. Patient/Family are encouraged to report perceived risks to care and to ask questions if they do not understand what they are told or what they should do.
[2021-12-19 16:37] LABS: Glucose Point of Care 300 mg/dl (65-105)
--- NOTE | 2021-12-19 17:16 | PC.NURSE ---
sister in law is here to visit, reports pt has no feeling in one leg and the nh was using a lift to get her up to chair, pt is alert to person only at this time, unsure which hospital she is in or how she got here, reoriented, dinner tray set up, pt sitting up in bed, hi flow on, serrano to gravity
[2021-12-19] MEDS: methylPREDNISolone SOD SUCC 125 MG VIAL 80 MG IV PUSH (19:29)
[2021-12-19 20:51] LABS: Glucose Point of Care 268 mg/dl (65-105)
[2021-12-19] MEDS: INSULIN HUMAN NPH (*BKC) 100 UNITS/ML 10 UNITS SUB-Q (20:51)
[2021-12-19] MEDS: DONEPEZIL HCL 5 MG TABLET 10 MG PO (21:30)
[2021-12-19] MEDS: GABAPENTIN 300 MG CAPSULE 900 MG PO (21:31)
[2021-12-20] VITALS (25 sets, daily range): BP systolic 103–146; BP diastolic 53–74; PULSE 83–107; RESP 17–26; TEMP 36.1–37; O2SAT 90–96
[2021-12-20] MEDS: IPRATROPIUM 0.5 MG/ALBUTEROL SULFATE 2.5 MG AMPUL.NEB 3 ML INHALATION ×4 (00:03→18:22)
[2021-12-20 06:26] LABS: Glucose Point of Care 282 mg/dl (65-105)
[2021-12-20] MEDS: methylPREDNISolone SOD SUCC 125 MG VIAL 80 MG IV PUSH (06:31)
[2021-12-20] MEDS: INSULIN HUMAN NPH (*BKC) 100 UNITS/ML 30 UNITS SUB-Q (06:32)
[2021-12-20] MEDS: ENOXAPARIN 40 MG/0.4 ML SYRINGE SUB-Q (09:15)
[2021-12-20] MEDS: buPROPion HCL XL (24 HR) 150 MG TABCR PO (09:16)
[2021-12-20] MEDS: ASPIRIN 81 MG ENTERIC TABLET PO (09:16)
[2021-12-20] MEDS: FUROSEMIDE INJ 40 MG/4 ML VIAL IV PUSH (09:16)
[2021-12-20] MEDS: SPIRONOLACTONE 25 MG TABLET PO (09:17)
[2021-12-20] MEDS: cilostazoL 100 MG TABLET PO ×2 (09:17→17:08)
[2021-12-20] MEDS: GABAPENTIN 300 MG CAPSULE PO (09:17)
[2021-12-20] MEDS: ATORVASTATIN 10 MG TABLET 20 MG PO (09:17)
[2021-12-20] MEDS: hydroCHLOROthiazide 25 MG TABLET PO (09:17)
[2021-12-20] MEDS: SILVER SULFADIAZINE 1% CR 400 GM JAR (*BKC) 1 APPLIC TOPICAL (09:35)
--- NOTE | 2021-12-20 10:18 | PM.IMHP ---
H&P: HPI History of Present Illness Date/Time: 12/20/21 10:18 Chief Complaint: Shortness of breath Narrative: This is a 80-year-old female that presented to the emergency care with complaints of shortness of breath. Patient has a past medical history of anxiety and depression, CVA, hyperlipidemia, hypertension, morbidly obese, sleep apnea, PVD and type 2 diabetes. Patient is a poor historian all information obtained from medical records. According to ED notes patient presented with shortness of breath due to COPD exacerbation and mild congestive heart failure. Unclear when it started and what treatment she received at the retirement. Currently patient remains on high flow nasal cannula according to nursing staff attempted to titrate patient dropped below 87%. Vital signs 113/67, 97, 20, 97.7, 92% on high flow nasal cannula with a flow rate of 35 L/min and FiO2 of 70%, WBC 7.9, hemoglobin 12.6, hematocrit 40.4, platelets 220, pH 7.33 CO2 55.2 O2 66.2, sodium 138, potassium 4.4, BUN 19, creatinine 1.27, glucose 282, AST 16, total bilirubin 0.8, ALT 25, CRP less than 0.2, BNP 334, urine with blood and leukocyte Estrace COVID-negative. Patient does not appear to be in any distress, she is resting comfortably in bed. She will remain until her high flow oxygen can be titrated up. Review of Systems Review of Systems: A 14 organ system Review of Systems was performed and pertinent positives included in the HPI, otherwise remaining ROS is negative. [facility] Past Medical History Medical History (Updated 12/20/21 @ 10:30 by KENNEDY Trujillo) Anxiety and depression CVA (cerebral vascular accident) Hyperlipidemia Hypertension Morbid obesity Obstructive sleep apnea Peripheral vascular disease Type 2 diabetes mellitus Social History Social History (Updated 12/19/21 @ 05:27 by Andrey Dumont MD) Smoking status: Former smoker Tobacco type: cigarettes Second hand tobacco smoke exposure: No Alcohol intake: former Substance use: unknown Spiritual care concerns: No Meds Home Medications and Allergies Home Medications Medication Instructions Recorded Confirmed Type Trulicity 1.5 mg subcut WEEKLY 12/19/21 12/19/21 History Wellbutrin SR 150 mg PO DAILY 12/19/21 12/19/21 History armodafinil 200 mg tablet 200 mg PO DAILY 12/19/21 12/19/21 History aspirin 81 mg tablet 81 mg PO DAILY 12/19/21 12/19/21 History atorvastatin 20 mg tablet 20 mg PO DAILY 12/19/21 12/19/21 History cilostazol 100 mg tablet 100 mg PO BID 12/19/21 12/19/21 History donepezil 10 mg tablet 10 mg PO 12/19/21 12/19/21 History gabapentin 300 mg capsule 300 mg PO DAILY 12/19/21 12/19/21 History gabapentin 600 mg tablet 900 mg PO 12/19/21 12/19/21 History insulin NPH isoph U-100 human 100 10 unit subcut HS 12/19/21 12/19/21 History unit/mL subcutaneous suspension (Novolin N NPH U-100 Insulin isophane) insulin NPH isoph U-100 human 100 30 unit subcut [facility] 12/19/21 12/19/21 History unit/mL subcutaneous suspension (Novolin N NPH U-100 Insulin isophane) metformin 500 mg tablet 500 mg PO BID 12/19/21 12/19/21 History silver sulfadiazine 1 % topical 1 applic topical DAILY 12/19/21 12/19/21 History cream spironolactone 25 1 tablet PO DAILY 12/19/21 12/19/21 History mg-hydrochlorothiazide 25 mg tablet Allergies Allergy/AdvReac Type Severity Reaction Status Date / Time No Known Allergies Allergy Verified 12/19/21 05:06 Vital Signs Vital Signs - 24 hr 12/19/21 11:57 12/19/21 13:35 12/19/21 13:44 Temperature Pulse Rate 104 H 118 H 115 H Respiratory Rate 26 H 26 H Blood Pressure Pulse Oximetry 94 91 Oxygen Delivery Oxygen Flow Rate 45 45 Fraction of Inspired Oxygen 12/19/21 13:48 12/19/21 14:14 12/19/21 15:50 Temperature 97.6 F Pulse Rate 101 H 102 H Respiratory Rate 22 H Blood Pressure 137/62 Pulse Oximetry 91 91 Oxygen Delivery High Flow Therapy with Na High Flow Therapy wi
[2021-12-20 11:48] LABS: Glucose Point of Care 426 mg/dl (65-105)
[2021-12-20 17:05] LABS: Glucose Point of Care 355 mg/dl (65-105)
--- NOTE | 2021-12-20 18:20 | PC.NURSE ---
Pt had run of SVT lasting about one minute. Pt was sleeping at the time. No distress noted. Pt now back to sinus rhythm at 98bpm. [facility] notified.
[2021-12-20] MEDS: GABAPENTIN 300 MG CAPSULE 900 MG PO (21:21)
[2021-12-20] MEDS: DONEPEZIL HCL 5 MG TABLET 10 MG PO (21:22)
[2021-12-20 21:25] LABS: Glucose Point of Care 252 mg/dl (65-105)
[2021-12-20] MEDS: INSULIN HUMAN NPH (*BKC) 100 UNITS/ML 10 UNITS SUB-Q (21:27)
[2021-12-21] VITALS (24 sets, daily range): BP systolic 123–149; BP diastolic 60–74; PULSE 81–112; RESP 16–24; TEMP 36.1–37.2; O2SAT 90–98
[2021-12-21] MEDS: IPRATROPIUM 0.5 MG/ALBUTEROL SULFATE 2.5 MG AMPUL.NEB 3 ML INHALATION ×4 (00:18→18:07)
[2021-12-21] MEDS: INSULIN HUMAN NPH (*BKC) 100 UNITS/ML 30 UNITS SUB-Q (06:37)
[2021-12-21 06:41] LABS: Glucose Point of Care 198 mg/dl (65-105)
[2021-12-21] MEDS: buPROPion HCL XL (24 HR) 150 MG TABCR PO (08:28)
[2021-12-21] MEDS: ENOXAPARIN 40 MG/0.4 ML SYRINGE SUB-Q (08:28)
[2021-12-21] MEDS: hydroCHLOROthiazide 25 MG TABLET PO (08:28)
[2021-12-21] MEDS: GABAPENTIN 300 MG CAPSULE PO (08:28)
[2021-12-21] MEDS: SPIRONOLACTONE 25 MG TABLET PO (08:28)
[2021-12-21] MEDS: ASPIRIN 81 MG ENTERIC TABLET PO (08:28)
[2021-12-21] MEDS: cilostazoL 100 MG TABLET PO ×2 (08:28→17:04)
[2021-12-21] MEDS: methylPREDNISolone SOD SUCC 40 MG VIAL IV PUSH (08:29)
[2021-12-21] MEDS: ATORVASTATIN 10 MG TABLET 20 MG PO (08:29)
[2021-12-21] MEDS: SILVER SULFADIAZINE 1% CR 400 GM JAR (*BKC) 1 APPLIC TOPICAL (08:29)
[2021-12-21 12:06] LABS: Glucose Point of Care 317 mg/dl (65-105)
[2021-12-21 12:42] LABS: Hematocrit 41.5 % (35.0-42.0); Hemoglobin 13.1 g/dL (11.7-13.8); Mean Corpuscular HGB Conc 31.6 g/dL (32.0-36.0); Mean Corpuscular Hemoglobin 30.3 pg (27.0-31.0); Mean Corpuscular Volume 96.1 fL (78.0-102.0); Mean Platelet Volume 10.1 fl (9.2-11.8); Platelet Count Result 257 K/mm3 (150-420); Red Blood Count 4.32 M/mm3 (4.20-5.40); Red Cell Distribution Width 14.7 % (11.6-14.4); White Blood Count 12.4 K/mm3 (4.8-10.8)
[2021-12-21 12:56] LABS: Alanine Aminotransferase 32 U/L (14-59); Albumin Level 3.6 g/dL (3.4-5.0); Alkaline Phosphatase 94 U/L (46-116); Anion Gap 6 mmol/L (8-16); Aspartate Amino Transferase 26 U/L (15-37); Bilirubin,Total 0.6 mg/dL (0.00-1.00); Blood Urea Nitrogen 37 mg/dL (7-18); Carbon Dioxide 34 mmol/L (21-32); Chloride 97 mmol/L (98-108); Estimated CRCL calculation 38 ml/min; Estimated Glomerular Filt Rate 38; Glucose 317 mg/dL (70-99); Osmolality Calculated 304 mOsm/kg (285-295); Potassium 4.3 mmol/L (3.5-5.1); Sodium 137 mmol/L (136-145); Total Protein 7.4 g/dL (6.4-8.2)
--- NOTE | 2021-12-21 12:57 | WPDPN ---
Progress Note: A&P Assessment and Plan (1) PNA (pneumonia): Code(s): J18.9 - Pneumonia, unspecified organism Status: Acute Assessment and Plan: Chest x-ray indicates possible pneumonia Blood culture pending WBCs lactic acid, CRP are within normal limits Patient requiring high flow currently on 2 L nasal cannula Started Rocephin with Solu-Medrol duo nebulizers for treatment will discharge with cefdinir Will attempt to titrate oxygen down Patient may require oxygen on discharge to assisted (2) Anxiety and depression: Code(s): F41.9 - Anxiety disorder, unspecified; F32.A - Depression, unspecified Status: Acute Assessment and Plan: Continue Wellbutrin (3) Congestive heart failure: Code(s): I50.9 - Heart failure, unspecified Status: Acute Assessment and Plan: Chest x-ray indicate mild pulmonary edema BNP within normal limits Continue spironolactone and hydrochlorothiazide Started Lasix daily we will discontinue Lasix and continue spironolactone and hydrochlorothiazide (4) Respiratory distress: Code(s): R06.03 - Acute respiratory distress Status: Acute Assessment and Plan: Resolved patient will require supplementary oxygen Secondary to pneumonia and uncompensated congestive heart failure (5) Type 2 diabetes mellitus: Code(s): E11.9 - Type 2 diabetes mellitus without complications Status: Acute Assessment and Plan: Less than 300 Elevated due to steroid use Continue home insulin along with high-dose sliding sca (6) Peripheral vascular disease: Code(s): I73.9 - Peripheral vascular disease, unspecified Status: Acute (7) Obstructive sleep apnea: Code(s): G47.33 - Obstructive sleep apnea (adult) (pediatric) Status: Acute Assessment and Plan: Will resume CPAP when appropriate (8) Hypertension: Code(s): I10 - Essential (primary) hypertension Status: Acute Assessment and Plan: Stable Continue home medication (9) Hyperlipidemia: Code(s): E78.5 - Hyperlipidemia, unspecified Status: Acute Assessment and Plan: Continue home medication Subjective Date/time seen: 12/21/2021 12:57 patient condition has much improved she is no longer requiring high flow nasal cannula she is on 6 L nasal cannula we will attempt to titrate her oxygen down. The patient denies , CP, palpitation, extremity numbness, lightheadedness, dizziness, constipation, diarrhea, chills, or fever. Review of Systems Review of Systems: A 14 organ system Review of Systems was performed and pertinent positives included in the HPI, otherwise remaining ROS is negative. Exam Narrative: GENERAL: This is a well-nourished, well-developed patient, in no apparent distress. HEAD: normocephalic, atraumatic. EYES: PERRL. Sclera clear/white. Vision is grossly intact. EARS: External ears normal, auditory canals clear and without drainage, TMs normal without perforation. Hearing grossly intact. NOSE: External nose normal with no obvious nasal discharge, nares without redness, no rhinorrhea. THROAT: Mucous membranes moist, posterior pharynx clear. NECK: Neck supple, non-tender without lymphadenopathy, masses or thyromegaly. CARDIOVASCULAR: Regular rate and rhythm without murmurs, gallops, or rubs. RESPIRATORY: Diminished GASTROINTESTINAL: Abdomen soft, non-tender, nondistended. Bowel sounds are active. No hepato-splenomegaly, or palpable masses. No guarding. SKIN: Right big toe lateral ulcer NEURO: awake, alert, and oriented to person, place and time. There were no obvious focal neurologic abnormalities. Steady gait EXTREMITIES: Normal range of motion. No edema. No calf tenderness. Negative Homans sign bilaterally. BACK: Nontender without deformity or crepitance. No flank tenderness. Objective Data Vital Signs Vital Signs: Vital Signs - 24 hr 12/21/21 16:00 12/21/21 16:00 12/21/21
--- NOTE | 2021-12-21 12:57 | P.PN_ITS ---
Progress Note: A&P Assessment and Plan (1) PNA (pneumonia): Code(s): J18.9 - Pneumonia, unspecified organism Status: Acute Assessment and Plan: * Chest x-ray indicates possible pneumonia * Blood culture pending * WBCs lactic acid, CRP are within normal limits * Patient requiring high flow currently on 2 L nasal cannula * Started Rocephin with Solu-Medrol duo nebulizers for treatment will discharge with cefdinir * Will attempt to titrate oxygen down * Patient may require oxygen on discharge to assisted (2) Anxiety and depression: Code(s): F41.9 - Anxiety disorder, unspecified; F32.A - Depression, unspecified Status: Acute Assessment and Plan: * Continue Wellbutrin (3) Congestive heart failure: Code(s): I50.9 - Heart failure, unspecified Status: Acute Assessment and Plan: * Chest x-ray indicate mild pulmonary edema * BNP within normal limits * Continue spironolactone and hydrochlorothiazide * Started Lasix daily we will discontinue Lasix and continue spironolactone and hydrochlorothiazide (4) Respiratory distress: Code(s): R06.03 - Acute respiratory distress Status: Acute Assessment and Plan: * Resolved patient will require supplementary oxygen * Secondary to pneumonia and uncompensated congestive heart failure * (5) Type 2 diabetes mellitus: Code(s): E11.9 - Type 2 diabetes mellitus without complications Status: Acute Assessment and Plan: * Less than 300 * Elevated due to steroid use * Continue home insulin along with high-dose sliding sca (6) Peripheral vascular disease: Code(s): I73.9 - Peripheral vascular disease, unspecified Status: Acute (7) Obstructive sleep apnea: Code(s): G47.33 - Obstructive sleep apnea (adult) (pediatric) Status: Acute Assessment and Plan: * Will resume CPAP when appropriate (8) Hypertension: Code(s): I10 - Essential (primary) hypertension Status: Acute Assessment and Plan: * Stable * Continue home medication (9) Hyperlipidemia: Code(s): E78.5 - Hyperlipidemia, unspecified Status: Acute Assessment and Plan: * Continue home medication Subjective Date/time seen: 12/21/2021 12:57 patient condition has much improved she is no longer requiring high flow nasal cannula she is on 6 L nasal cannula we will attempt to titrate her oxygen down. The patient denies , CP, palpitation, extremity numbness, lightheadedness, dizziness, constipation, diarrhea, chills, or fever. Review of Systems Review of Systems: A 14 organ system Review of Systems was performed and pertinent positives included in the HPI, otherwise remaining ROS is negative. Exam Narrative: GENERAL: This is a well-nourished, well-developed patient, in no apparent distress. HEAD: normocephalic, atraumatic. EYES: PERRL. Sclera clear/white. Vision is grossly intact. EARS: External ears normal, auditory canals clear and without drainage, TMs normal without perforation. Hearing grossly intact. NOSE: External nose normal with no obvious nasal discharge, nares without redness, no rhinorrhea. THROAT: Mucous membranes moist, posterior pharynx clear. NECK: Neck supple, non-tender without lymphadenopathy, masses or thyromegaly. CARDIOVASCULAR: Regular rate and rhythm without murmurs, gallops, or rubs. RESPIRATORY: Diminished GASTROINTESTINAL: Abdomen soft, non-tender, nondistended. Bowel sounds are active. No hepato-splenomegaly, or palpable masses. No guarding. SK
[2021-12-21 13:02] LABS: D Dimer 0.76 mg/L (0.19-0.50)
[2021-12-21 16:31] LABS: Glucose Point of Care 415 mg/dl (65-105)
[2021-12-21] MEDS: ENOXAPARIN 120 MG/0.8 ML SYRINGE 117 MG SUB-Q (17:15)
[2021-12-21] MEDS: INSULIN HUMAN NPH (*BKC) 100 UNITS/ML 10 UNITS SUB-Q (20:40)
[2021-12-21] MEDS: DONEPEZIL HCL 5 MG TABLET 10 MG PO (20:42)
[2021-12-21 20:43] LABS: Glucose Point of Care 435 mg/dl (65-105)
[2021-12-21] MEDS: GABAPENTIN 300 MG CAPSULE 900 MG PO (20:43)
--- NOTE | 2021-12-21 20:46 | PCDIET ---
Jose Tenorio, Hospitalist, notified that patient's blood sugar was 435. New order received for Lispro 5 units X1.
[2021-12-21 21:47] LABS: Glucose Point of Care 404 mg/dl (65-105)
[2021-12-21] MEDS: traZODone HCL 50 MG TABLET PO (22:26)
[2021-12-22] VITALS (18 sets, daily range): BP systolic 135–160; BP diastolic 60–67; PULSE 77–97; RESP 16–20; TEMP 36.1–36.7; O2SAT 84–99
[2021-12-22] MEDS: IPRATROPIUM 0.5 MG/ALBUTEROL SULFATE 2.5 MG AMPUL.NEB 3 ML INHALATION ×3 (00:27→12:41)
[2021-12-22] MEDS: ENOXAPARIN 120 MG/0.8 ML SYRINGE 117 MG SUB-Q (05:42)
[2021-12-22] MEDS: INSULIN HUMAN NPH (*BKC) 100 UNITS/ML 30 UNITS SUB-Q (05:49)
[2021-12-22 05:53] LABS: Glucose Point of Care 235 mg/dl (65-105)
--- NOTE | 2021-12-22 06:41 | PC.NURSE ---
Pt transferred from bed to chair via lift to stand w/3 assist. Pt followed instructions for safe use of equipment and performed the activity very well.
[2021-12-22 07:42] LABS: Glucose Point of Care 236 mg/dl (65-105)
[2021-12-22] MEDS: SILVER SULFADIAZINE 1% CR 400 GM JAR (*BKC) 1 APPLIC TOPICAL (09:00)
[2021-12-22] MEDS: HYDROcodone/acetaminophen (*CRX) 5-325 MG TABLET 1 TAB PO (09:03)
[2021-12-22] MEDS: cilostazoL 100 MG TABLET PO (09:04)
[2021-12-22] MEDS: buPROPion HCL XL (24 HR) 150 MG TABCR PO (09:05)
[2021-12-22] MEDS: ASPIRIN 81 MG ENTERIC TABLET PO (09:05)
[2021-12-22] MEDS: SPIRONOLACTONE 25 MG TABLET PO (09:05)
[2021-12-22] MEDS: GABAPENTIN 300 MG CAPSULE PO (09:05)
[2021-12-22] MEDS: ATORVASTATIN 10 MG TABLET 20 MG PO (09:05)
[2021-12-22] MEDS: hydroCHLOROthiazide 25 MG TABLET PO (09:05)
[2021-12-22 09:12] LABS: Hematocrit 43.6 % (35.0-42.0); Hemoglobin 13.2 g/dL (11.7-13.8); Mean Corpuscular HGB Conc 30.3 g/dL (32.0-36.0); Mean Corpuscular Hemoglobin 30.3 pg (27.0-31.0); Mean Corpuscular Volume 100.2 fL (78.0-102.0); Mean Platelet Volume 10.6 fl (9.2-11.8); Platelet Count Result 217 K/mm3 (150-420); Red Blood Count 4.35 M/mm3 (4.20-5.40); Red Cell Distribution Width 14.8 % (11.6-14.4); White Blood Count 9.5 K/mm3 (4.8-10.8)
[2021-12-22 09:29] LABS: Alanine Aminotransferase 35 U/L (14-59); Albumin Level 3.5 g/dL (3.4-5.0); Alkaline Phosphatase 90 U/L (46-116); Anion Gap 7 mmol/L (8-16); Aspartate Amino Transferase 26 U/L (15-37); Bilirubin,Total 0.6 mg/dL (0.00-1.00); Blood Urea Nitrogen 34 mg/dL (7-18); Calcium 9.1 mg/dL (8.5-10.1); Carbon Dioxide 34 mmol/L (21-32); Chloride 99 mmol/L (98-108); Estimated CRCL calculation 39 ml/min; Estimated Glomerular Filt Rate 39; Glucose 254 mg/dL (70-99); Osmolality Calculated 306 mOsm/kg (285-295); Sodium 140 mmol/L (136-145); Total Protein 7.3 g/dL (6.4-8.2)
--- NOTE | 2021-12-22 12:00 | P.DS_ITS ---
DS: Admitting Diagnosis Discharge Date 12/22/2021 Admitting Diagnosis Pneumonia and congestive heart failure DS: Discharge Diagnosis Discharge Diagnosis (1) PNA (pneumonia): Code(s): J18.9 - Pneumonia, unspecified organism Status: Acute Assessment and Plan: * Chest x-ray indicates possible pneumonia * Blood culture pending * WBCs lactic acid, CRP are within normal limits * Patient requiring high flow currently on 2 L nasal cannula * Started Rocephin with Solu-Medrol duo nebulizers for treatment will discharge with cefdinir * Will attempt to titrate oxygen down * Patient may require oxygen on discharge to [facility] (2) Anxiety and depression: Code(s): F41.9 - Anxiety disorder, unspecified; F32.A - Depression, unspecified Status: Acute Assessment and Plan: * Continue Wellbutrin (3) Congestive heart failure: Code(s): I50.9 - Heart failure, unspecified Status: Acute Assessment and Plan: * Chest x-ray indicate mild pulmonary edema * BNP within normal limits * Continue spironolactone and hydrochlorothiazide * Started Lasix daily we will discontinue Lasix and continue spironolactone and hydrochlorothiazide (4) Respiratory distress: Code(s): R06.03 - Acute respiratory distress Status: Acute Assessment and Plan: * Resolved patient will require supplementary oxygen * Secondary to pneumonia and uncompensated congestive heart failure * (5) Type 2 diabetes mellitus: Code(s): E11.9 - Type 2 diabetes mellitus without complications Status: Acute Assessment and Plan: * Less than 300 * Elevated due to steroid use * Continue home insulin along with high-dose sliding sca (6) Peripheral vascular disease: Code(s): I73.9 - Peripheral vascular disease, unspecified Status: Acute (7) Obstructive sleep apnea: Code(s): G47.33 - Obstructive sleep apnea (adult) (pediatric) Status: Acute Assessment and Plan: * Will resume CPAP when appropriate (8) Hypertension: Code(s): I10 - Essential (primary) hypertension Status: Acute Assessment and Plan: * Stable * Continue home medication (9) Hyperlipidemia: Code(s): E78.5 - Hyperlipidemia, unspecified Status: Acute Assessment and Plan: * Continue home medication DS: Summary Hospital Course Hospital Course: This is a 80-year-old female that presented to the emergency care with complaints of shortness of breath.? Patient has a past medical history of anxiety and depression, CVA, hyperlipidemia, hypertension, morbidly obese, sleep apnea, PVD and type 2 diabetes.? Patient is a poor historian all information obtained from medical records.? According to ED notes patient presented with shortness of breath due to COPD exacerbation and mild congestive heart failure.? Unclear when it started and what treatment she received at the retirement. Patient condition has much improved she is currently on 2 L nasal cannula no longer requiring high flow nasal cannula. She will discharge with p.o. antibiotic cefdinir for pneumonia. She was also instructed to follow-up with her primary care physician for a nodule on her lung and lymph node a to rule out metastatic disease. Patient does not appear to be in any distress. The patient denies CP, palpitation, extremity numbness, lightheadedness, dizziness, constipation, diarrhea, chills, or fever. She was discharged to retirement Time Spent with Patient Time attestation: Total time spent providing and/or coordinating discharge services:
--- NOTE | 2021-12-22 12:00 | PM.DS ---
DS: Admitting Diagnosis Discharge Date 12/22/2021 Admitting Diagnosis Pneumonia and congestive heart failure DS: Discharge Diagnosis Discharge Diagnosis (1) PNA (pneumonia): Code(s): J18.9 - Pneumonia, unspecified organism Status: Acute Assessment and Plan: Chest x-ray indicates possible pneumonia Blood culture pending WBCs lactic acid, CRP are within normal limits Patient requiring high flow currently on 2 L nasal cannula Started Rocephin with Solu-Medrol duo nebulizers for treatment will discharge with cefdinir Will attempt to titrate oxygen down Patient may require oxygen on discharge to [facility] (2) Anxiety and depression: Code(s): F41.9 - Anxiety disorder, unspecified; F32.A - Depression, unspecified Status: Acute Assessment and Plan: Continue Wellbutrin (3) Congestive heart failure: Code(s): I50.9 - Heart failure, unspecified Status: Acute Assessment and Plan: Chest x-ray indicate mild pulmonary edema BNP within normal limits Continue spironolactone and hydrochlorothiazide Started Lasix daily we will discontinue Lasix and continue spironolactone and hydrochlorothiazide (4) Respiratory distress: Code(s): R06.03 - Acute respiratory distress Status: Acute Assessment and Plan: Resolved patient will require supplementary oxygen Secondary to pneumonia and uncompensated congestive heart failure (5) Type 2 diabetes mellitus: Code(s): E11.9 - Type 2 diabetes mellitus without complications Status: Acute Assessment and Plan: Less than 300 Elevated due to steroid use Continue home insulin along with high-dose sliding sca (6) Peripheral vascular disease: Code(s): I73.9 - Peripheral vascular disease, unspecified Status: Acute (7) Obstructive sleep apnea: Code(s): G47.33 - Obstructive sleep apnea (adult) (pediatric) Status: Acute Assessment and Plan: Will resume CPAP when appropriate (8) Hypertension: Code(s): I10 - Essential (primary) hypertension Status: Acute Assessment and Plan: Stable Continue home medication (9) Hyperlipidemia: Code(s): E78.5 - Hyperlipidemia, unspecified Status: Acute Assessment and Plan: Continue home medication DS: Summary Hospital Course Hospital Course: This is a 80-year-old female that presented to the emergency care with complaints of shortness of breath.? Patient has a past medical history of anxiety and depression, CVA, hyperlipidemia, hypertension, morbidly obese, sleep apnea, PVD and type 2 diabetes.? Patient is a poor historian all information obtained from medical records.? According to ED notes patient presented with shortness of breath due to COPD exacerbation and mild congestive heart failure.? Unclear when it started and what treatment she received at the detention. Patient condition has much improved she is currently on 2 L nasal cannula no longer requiring high flow nasal cannula. She will discharge with p.o. antibiotic cefdinir for pneumonia. She was also instructed to follow-up with her primary care physician for a nodule on her lung and lymph node a to rule out metastatic disease. Patient does not appear to be in any distress. The patient denies CP, palpitation, extremity numbness, lightheadedness, dizziness, constipation, diarrhea, chills, or fever. She was discharged to detention Time Spent with Patient Time attestation: Total time spent providing and/or coordinating discharge services: Exam Narrative: GENERAL: This is a well-nourished, well-developed patient, in no apparent distress. HEAD: normocephalic, atraumatic. EYES: PERRL. Sclera clear/white. Vision is grossly intact. EARS: External ears normal, auditory canals clear and without drainage, TMs normal without perforation. Hearing grossly intact. NOSE: External nose normal with no obvious nasal discharge, nares without r
[2021-12-22] MEDS: DOCUSATE SODIUM 100 MG CAPSULE PO (12:04)
[2021-12-22] MEDS: polyethylene glycoL 3350 17 GM POWD.PACK PO (12:04)
[2021-12-22 12:05] LABS: Glucose Point of Care 246 mg/dl (65-105)
--- NOTE | 2021-12-22 14:27 | PC.NURSE ---
Pt discharged to [facility]. VSS. Pt is now using 2L/NC of O2 constantly. Medications reviewed with pt. [facility] workers came to take pt back to [facility].
--- NOTE | 2021-12-23 11:17 | PC.NURSE ---
skilled nursing nurse states they received and understood the discharge instructions.
== END 2021-12-22 14:15 | DRG 190 ==
LOC: CHSED 08:41 → CHS2ND 08:45
PROVIDERS: Emergency Medicine; Nurse Practitioner; Admitting Provider Internal Medicine; Emergency Provider Emergency Medicine; PCP Internal Medicine; Visit Provider Internal Medicine
DX: J44.0 Chronic obstructive pulmonary disease with (acute) lower respiratory infection (principal); I10 Essential (primary) hypertension; J18.9 Pneumonia, unspecified organism; Z68.42 Body mass index [BMI] 45.0-49.9, adult; J44.1 Chronic obstructive pulmonary disease with (acute) exacerbation; I11.0 Hypertensive heart disease with heart failure; I50.9 Heart failure, unspecified; R06.03 Acute respiratory distress; I73.9 Peripheral vascular disease, unspecified; E11.51 Type 2 diabetes mellitus with diabetic peripheral angiopathy without gangrene; Z20.822 Contact with and (suspected) exposure to COVID-19; E78.5 Hyperlipidemia, unspecified; E66.01 Morbid (severe) obesity due to excess calories; G47.33 Obstructive sleep apnea (adult) (pediatric); R91.1 Solitary pulmonary nodule; F32.A Depression, unspecified; F41.9 Anxiety disorder, unspecified; Z79.4 Long term (current) use of insulin; Z86.73 Personal history of transient ischemic attack (TIA), and cerebral infarction without residual deficits; Z87.891 Personal history of nicotine dependence
CPT/HCPCS: 36415; 36600; 71045; 71275; 80053; 81001; 82805; 82948; 83605; 83735; 83880; 85025; 85027; 85380; 85610; 86140; 87040; 87086; 93005; 94640; 96365; 96375; 99285; A9270; C9803; J0696; J1650; J1815; J1940; J2920; J2930; J3475; Q9967; U0003; U0005

== ENCOUNTER 2021-12-27 07:01 | Outpatient (NON) | payer OTHER, SELFPAY ==
[2021-12-27 07:31] LABS: Basophils Absolute Auto 0.04 K/mm3 (0.00-0.10); Basophils Percent Auto 0.5 % (0.0-1.0); Eosinophils Absolute Auto 0.18 K/mm3 (0.02-0.50); Eosinophils Percent Auto 2.3 % (1.0-6.0); Hemoglobin 11.9 g/dL (11.7-13.8); Immature Granulocyte Absolute 0.02 K/mm3 (0.00-0.00); Immature Granulocyte Percent A 0.3 % (0.0-0.0); Lymphocytes Absolute Auto 2.54 K/mm3 (1.10-4.50); Lymphocytes Percent Auto 31.9 % (18.0-42.0); Mean Corpuscular HGB Conc 31.3 g/dL (32.0-36.0); Mean Corpuscular Hemoglobin 30.2 pg (27.0-31.0); Mean Corpuscular Volume 96.4 fL (78.0-102.0); Mean Platelet Volume 10.9 fl (9.2-11.8); Monocytes Absolute Auto 0.54 K/mm3 (0.10-0.90); Monocytes Percent Auto 6.8 % (2.0-11.0); Neutrophils Absolute Auto 4.6 K/mm3 (1.7-7.2); Neutrophils Percent Auto 58.2 % (50.0-70.0); Platelet Count Result 192 K/mm3 (150-420); Red Blood Count 3.94 M/mm3 (4.20-5.40); Red Cell Distribution Width 14.6 % (11.6-14.4)
[2021-12-27 07:34] LABS: Alanine Aminotransferase 38 U/L (14-59); Albumin Level 3.1 g/dL (3.4-5.0); Alkaline Phosphatase 80 U/L (46-116); Anion Gap 4 mmol/L (8-16); Aspartate Amino Transferase 15 U/L (15-37); Bilirubin,Total 0.9 mg/dL (0.00-1.00); Blood Urea Nitrogen 20 mg/dL (7-18); Calcium 8.9 mg/dL (8.5-10.1); Carbon Dioxide 32 mmol/L (21-32); Chloride 103 mmol/L (98-108); Cholesterol 92 mg/dL (0-200); Estimated Glomerular Filt Rate 55; Glucose 115 mg/dL (70-99); HDL Direct 40 mg/dL (40-60); LDL Cholesterol Calculated 26 mg/dL (<130); Osmolality Calculated 291 mOsm/kg (285-295); Potassium 4.3 mmol/L (3.5-5.1); Sodium 139 mmol/L (136-145); Total Protein 6.4 g/dL (6.4-8.2); Triglycerides 129 mg/dL (0-150)
[2021-12-27 07:56] LABS: Hemoglobin A1C 8.1 % (<5.7)
== END 2021-12-27 07:02 | disposition home or self-care (01) ==
LOC: CHSLAB 07:02
PROVIDERS: PCP Internal Medicine; Visit Provider Internal Medicine
DX: J44.9 Chronic obstructive pulmonary disease, unspecified (principal); E11.9 Type 2 diabetes mellitus without complications; I10 Essential (primary) hypertension; M81.0 Age-related osteoporosis without current pathological fracture
CPT/HCPCS: 36415; 80053; 80061; 83036; 85025